=== PATIENT | female | born 1995 | race Caucasian/White ===

== ENCOUNTER 2019-10-08 14:28 | Emergency (ER) | payer OTHER ==
[~2019-10-08] VITALS: Ht 157.5 cm; Wt 49.9 kg
[2019-10-08 14:33] VITALS: BP 130/62
--- NOTE | 2019-10-08 14:37 | NUR ---
PT TO BED 3 WITH STEADY GAIT
[2019-10-08] MEDS ORDERED: IBUPROFEN 600 MG TAB PO ONE (14:45)
[2019-10-08] MEDS ORDERED: BACITRACIN OINT 500 UNITS/GM PKT TP ONE ×2 (14:49→14:50)
--- NOTE | 2019-10-08 14:49 | NUR ---
C/O PAIN TO PTS R WRIST X 2 HOURS PRIOR TO ARRIVAL. PT STATES SHE WAS HIKING AND HER ARM WAS POKED BY PLANT. RADIAL PULSESL 2+ EQUAL. MILD SWELLING NOTED WITH BRUISING AT RT WRIST.
--- NOTE | 2019-10-08 15:00 | NUR ---
PATIENT REFUSED ALL MEDS INCLUDING TDAP VACCINE BECAUSE SHE IS NOT SURE IF SHE WILL BE CHARGED FOR IT. ASKED IF WE CAN CHECK FOR HER IF THERE WILL BE A COST. NOTIFIED PT WE ARE UNABLE TO CHECK FOR HER D/T THIS IS ER. PT STATES SHE WILL REFUSE ALL MEDS AND SEE HER PCP TO F/U.
[2019-10-08 15:10] VITALS: BP 130/62
--- NOTE | 2019-10-08 15:10 | NUR ---
Patient discharged with v/s stable. Written and verbal after care instructions given and explained. Patient alert, oriented and verbalized understanding of instructions. Ambulatory with steady gait. All questions addressed prior to discharge. ID band removed. Patient advised to follow up with PMD. Rx of IBUPROFEN AND BACITRACIN given. Patient educated on indication of medication including possible reaction and side effects. Opportunity to ask questions provided and answered.
== END 2019-10-08 15:10 | disposition home or self-care (01) ==
LOC: MED 14:28
DX: S60.211A Contusion of right wrist, initial encounter (principal); X58.XXXA Exposure to other specified factors, initial encounter; Y93.01 Activity, walking, marching and hiking; Y92.89 Other specified places as the place of occurrence of the external cause; Y99.8 Other external cause status
CPT/HCPCS: 99283